=== PATIENT | male | born 1935 | race Caucasian/White ===

== ENCOUNTER 2017-01-20 06:13 | Day surgery (SDC) | payer MEDICARE, BC ==
[~2017-01-20 06:13] MED LIST: Dextrose 5%-0.45% NaCl 1,000 ML IV SCH; Sodium Chloride 0.9% 10 ML Syringe FLUSH PRN
[2017-01-20] MEDS ORDERED: Midazolam 1 MG/ML 2 ML SDV ONE (06:14)
[2017-01-20] MEDS ORDERED: fentaNYL 100 MCG/2 ML SDV ONE (06:14)
[2017-01-20] MEDS ORDERED: fentaNYL 100 MCG/2 ML SDV IV ONE ×3 (07:47→16:53)
[2017-01-20] MEDS ORDERED: Midazolam 1 MG/ML 2 ML SDV IV ONE ×7 (07:48→16:53)
--- NOTE | 2017-01-20 08:39 | OR ---
DATE: 01/20/2017 PROCEDURE: Total colonoscopy. INSTRUMENT USED: PCF-H180 AL Olympus video colonoscope. PREMEDICATIONS: Fentanyl 100 mcg intravenous, Versed 4 mg intravenous, nasal O2 cannula. The procedure was done under pulse oximetry, BP recording, and technology lead. INDICATION: Screening colonoscopic examination is done for detection of any polypoid lesions and removal, endoscopic hemostasis therapy if needed. DESCRIPTION OF PROCEDURE: Initial rectal exam was unremarkable. Rigid anoscopy was normal. The colonoscope was passed with ease up to the ileocecal area. Photographs were taken of the cecum showing angiodysplasia without bleeding from it. NBI views were taken. No bleeding was noted from any of the visualized areas at the commencement of the examination. No stricture. No large isolated ulcerations seen. No evidence of diffuse inflammatory bowel disease in the form of friability, contact bleeding, or ulcerations. No polyp or tumor mass identified. Probing the proximal sides of folds and flexures, using adequate distention, and clearing of the stool material, withdrawal of the scope was made. Cecum to rectum time over 6 minutes. No bleeding was noted from any of the visualized areas at the completion of examination. IMPRESSION: Cecal angiodysplasia. The patient tolerated the procedure well. [facility] /[id number]
[2017-01-20 10:04] VITALS: BP 110/50
== END 2017-01-20 10:10 | disposition home or self-care (01) ==
LOC: DL.ENDO 06:13
PROVIDERS: ATTEND Internal Medicine Gastroenterology
DX: Z12.11 Encounter for screening for malignant neoplasm of colon (principal); K55.20 Angiodysplasia of colon without hemorrhage; I25.10 Atherosclerotic heart disease of native coronary artery without angina pectoris; E78.00 Pure hypercholesterolemia, unspecified; Z88.8 Allergy status to other drugs, medicaments and biological substances; Z91.041 Radiographic dye allergy status; Z95.1 Presence of aortocoronary bypass graft; Z98.890 Other specified postprocedural states; Z87.891 Personal history of nicotine dependence
CPT/HCPCS: G0121; J2250; J3010; J7042

== ENCOUNTER 2019-11-24 16:04 | Emergency (ER) | payer MEDICARE, BC ==
[2019-11-24 18:44] LABS: ANION GAP 14.2 mEq/L (7-13); CHLORIDE,CL 105 mmol/L (98-107); SODIUM,NA 138 mmol/L (136-145)
[2019-11-24] MEDS ORDERED: Sodium Chloride 0.9% 1,000 ML IV ONE (18:44)
[2019-11-24] MEDS ORDERED: Pantoprazole 40 MG Vial IVPUSH ONE (19:23)
--- NOTE | 2019-11-24 19:23 | EDM.PDOC ---
ED HPI GENERAL MEDICAL PROBLEM - General Chief Complaint: General Stated Complaint: WEAK, DIZZY, FELL Time Seen by Provider: 11/24/19 17:50 Source of Information: Reports: Patient History Limitations: Reports: No Limitations - History of Present Illness INITIAL COMMENTS - FREE TEXT/NARRATIVE: ED with daughter reports dizzy today, tripped up one stair, denies injury but concerned due to dizziness. 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 Denies bloody stool, no vomiting, Last chemo last week. No fever or chills. SOB more than usual Denies chest pain Dizziness worse when standing - Related Data Allergies Allergy/AdvReac Type Severity Reaction Status Date / Time ezetimibe Allergy Facial Verified 11/24/19 17:21 Swelling Iodinated Contrast Media Allergy Rash Verified 11/24/19 17:21 [Iodinated Contrast- Oral and IV Dye] Home Meds: Home Meds Aspirin [Halfprin] 1 tab PO DAILY 01/19/17 [History] LORazepam [Ativan] 1 tab PO ASDIRECTED PRN 01/19/17 [History] Naproxen Sodium [Aleve] 1 tab PO DAILY PRN 01/19/17 [History] atorvaSTATin Calcium [Atorvastatin Calcium] 1 tab PO BEDTIME 01/19/17 [History] Multivitamin with Minerals [Multiple Vitamin] 1 tab PO DAILY 10/03/19 [History] Amoxicillin/Potassium Clav [Augmentin 875-125 Tablet] 1 tab PO BID 10/30/19 [ History] Past Medical History HEENT History: Reports: Impaired Vision, Other (See Below) Other HEENT History: WEARS GLASSES Cardiovascular History: Reports: CAD, High Cholesterol, [place] Respiratory History: Reports: None Gastrointestinal History: Reports: None Genitourinary History: Reports: Other (See Below) Other Genitourinary History: ED Musculoskeletal History: Reports: Arthritis Neurological History: Reports: None Psychiatric History: Reports: Anxiety Endocrine/Metabolic History: Reports: None Hematologic History: Reports: Anemia Immunologic History: Reports: None Oncologic (Cancer) History: Reports: None Dermatologic History: Reports: None - Infectious Disease History Infectious Disease History: Reports: None - Past Surgical History Head Surgeries/Procedures: Reports: None HEENT Surgical History: Reports: Cataract Surgery Cardiovascular Surgical History: Reports: Coronary Artery Bypass GI Surgical History: Reports: Colonoscopy, Hernia, Inguinal Musculoskeletal Surgical History: Reports: Other (See Below) Other Musculoskeletal Surgeries/Procedures:: FINGER AMPUTATION Social & Family History - Family History Family Medical History: Noncontributory - Tobacco Use Smoking Status *Q: Never Smoker - Caffeine Use Caffeine Use: Reports: Coffee - Recreational Drug Use Recreational Drug Use: No ED ROS GENERAL - Review of Systems Review Of Systems: Comprehensive ROS is negative, except as noted in HPI. ED EXAM, GENERAL - Physical Exam Exam: See Below Exam Limited By: No Limitations General Appearance: Alert, Mild Distress, Thin, Other (pale) Eye Exam: Bilateral Eye: EOMI Ears: Normal External Exam, Hearing Loss Nose: Normal Inspection Throat/Mouth: Normal Inspection Head: Atraumatic, Normocephalic Neck: Other (chronic wound left) Respiratory/Chest: No Respiratory Distress, Decreased Breath Sounds. No: Crackles, Rales, Wheezing Cardiovascular: Normal Peripheral Pulses, Regular Rate, Rhythm. No: JVD GI/Abdominal: Normal Bowel Sounds, No Distention Rectal (Males) Exam: Normal Rectal Tone, Heme + Stool Back Exam: Normal Inspection, Full Range of Motion Extremities: Normal Range of Motion Neurological: Alert, Oriented, Normal Cognition Psychiatric: Normal Affect Skin Exam: Warm, Dry, Intact, Pallor, Wound/Incision (left neck, arm right forearm) Course - Vital Signs Last Recorded V/S: Last Vital Signs Temp 97.9 F 11/24/19 19:40 Pulse 92 11/24/19 19:40 Resp 20 11/24/19 19:40 BP 105/44 L 11/24/19 19:40 Pulse Ox 100 11/24/19 19:40 - Orders/Labs/Meds Labs: Laboratory Tests 11/24/19 11/24/19 11/24/19 Range/Units 18:14 18:14 18:14 WBC 20.9 H (5.0-10.0) 10^3/uL RBC 1.15 L (4.6-6.2) 10^6/uL Hgb 3.4 L* (14.0-18.0) g/dL Hct 10.4 L* (40.0-54.0) % MCV 90.4 (80-100) fL MCH 29.6 (27.0-34.0) pg MCHC 32.7 L (33.0-35.0) g/dL Plt Count 11 L* (150-450) 10^3/uL Add Manual Diff Yes Neutrophils % (Manual) 40 L (42-75) % Band Neutrophils % 8 % Lymphocytes % (Manual) 23 (20-50) % Monocytes % (Manual) 4 (2-8) % Metamyelocytes % 25 Platelet Estimate Marked dec Sodium 138 (136-145) mmol/L Potassium 4.2 (3.5-5.1) mmol/L Chloride 105 (98-107) mmol/L Carbon Dioxide 23 (21-32) mmol/L Anion Gap 14.2 H (7-13) mEq/L BUN 46 H (7-18) mg/dL Creatinine 1.57 H (0.70-1.30) mg/dL Est Cr Clr Drug Dosing TNP Estimated GFR (MDRD) 43 BUN/Creatinine Ratio 29.3 (No establ ref range) Glucose 127 H (74-99) mg/dL Calcium 7.9 L (8.5-10.1) mg/dL Total Bilirubin 0.3 (0.2-1.0) mg/dL AST 28 (15-37) U/L ALT 31 (16-63) U/L Alkaline Phosphatase 77 (46-116) U/L Total Protein 6.8 (6.4-8.2) g/dL Albumin 2.6 L (3.4-5.0) g/dL Globulin 4.2 Albumin/Globulin Ratio 0.62 Blood Type A POSITIVE Gel Antibody Screen Negative Crossmatch See Detail Meds: Medications Discontinued Medications Generic Name Dose Route Start Last Admin Trade Name Freq PRN Reason Stop Dose Admin Sodium Chloride 1,000 mls @ 200 mls/hr 11/24/19 18:44 Normal Saline IV 11/24/19 23:43 .BOLUS ONE Pantoprazole Sodium 40 mg 11/24/19 19:23 11/24/19 19:28 Protonix Iv IVPUSH 11/24/19 19:24 40 mg ONETIME ONE Administration Departure - Departure Time of Disposition: 21:15 Disposition: DC/Tfer to Acute Hospital 02 Condition: Undetermined Clinical Impression: H/O multiple myeloma, Weakness Anemia Qualifiers: Anemia type: unspecified type Qualified Code(s): D64.9 - Anemia, unspecified Skin ulcer of neck Qualifiers: Non-pressure ulcer stage: unspecified non-pressure ulcer stage Qualified Code(s ): L98.499 - Non-pressure chronic ulcer of skin of other sites with unspecified severity - Discharge Information *PRESCRIPTION DRUG MONITORING PROGRAM REVIEWED*: No *COPY OF PRESCRIPTION DRUG MONITORING REPORT IN PATIENT SHIELA: No Referrals: PCP,None [Primary Care Provider] - Forms: ED Department Discharge Sepsis Event Note (ED) - Evaluation Sepsis Screening Result: No Definite Risk - Focused Exam Vital Signs: Vital Signs Temp Pulse Resp BP Pulse Ox 11/24/19 19:40 97.9 F 92 20 105/44 L 100 11/24/19 19:31 98.2 F 87 16 112/46 L 100 11/24/19 19:08 98.7 F 91 20 94/45 L
[2019-11-24 19:44] VITALS: BP 105/44; PULSE 92
== END 2019-11-24 19:40 ==
LOC: DL.ED 16:04
DX: D64.9 Anemia, unspecified (principal); L98.499 Non-pressure chronic ulcer of skin of other sites with unspecified severity; C90.00 Multiple myeloma not having achieved remission; I25.2 Old myocardial infarction; I25.10 Atherosclerotic heart disease of native coronary artery without angina pectoris; E78.00 Pure hypercholesterolemia, unspecified; F41.9 Anxiety disorder, unspecified; Z95.1 Presence of aortocoronary bypass graft; Z91.041 Radiographic dye allergy status; Z88.8 Allergy status to other drugs, medicaments and biological substances; Z79.82 Long term (current) use of aspirin; Z79.899 Other long term (current) drug therapy
CPT/HCPCS: 36415; 36430; 80053; 82272; 85025; 86850; 86900; 86901; 86920; 86922; 96374; 99285; C9113; P9016; 99284

== ENCOUNTER 2019-12-10 04:55 | Emergency (ER) | payer MEDICARE, BC ==
[2019-12-10] MEDS ORDERED: Bacitracin Oint 1 GM U/D Packet TOP ONE (05:08)
[2019-12-10] MEDS: Lidocaine 2% with EPINEPHrine 1:200,000 20 ML SDV INJECT ONE (05:13)
--- NOTE | 2019-12-10 05:30 | EDM.PDOC ---
ED HPI GENERAL MEDICAL PROBLEM - General Chief Complaint: Head Injury Stated Complaint: LIGHT HEADED, DIZZY Time Seen by Provider: 12/10/19 05:10 Source of Information: Reports: Patient History Limitations: Reports: No Limitations - History of Present Illness INITIAL COMMENTS - FREE TEXT/NARRATIVE: This 84 yo male patient was brought to the ED by family due to a ground level fa ll and a laceration to the right posterior scalp. The patient reports he was getting up to use the bathroom when he got dizzy and fell. The patient reports he did have a transfusion about 1 week ago for anemia and has been getting chemo in [place]. The patient is supposed to be in [place] today for an appointment. Onset: Today Duration: Minutes: Location: Reports: Head Quality: Reports: Ache, Dull Severity: Moderate Improves with: Reports: None Worsens with: Reports: None Context: Reports: Trauma (ground level fall) Associated Symptoms: Reports: Syncope Right Parietal Head Pain Score (Numeric/FACES): 4 - Related Data Allergies Allergy/AdvReac Type Severity Reaction Status Date / Time ezetimibe Allergy Facial Verified 12/10/19 05:45 Swelling Iodinated Contrast Media Allergy Rash Verified 12/10/19 05:45 [Iodinated Contrast- Oral and IV Dye] Home Meds: Home Meds Aspirin [Halfprin] 1 tab PO DAILY 01/19/17 [History] LORazepam [Ativan] 1 tab PO ASDIRECTED PRN 01/19/17 [History] Naproxen Sodium [Aleve] 1 tab PO DAILY PRN 01/19/17 [History] atorvaSTATin Calcium [Atorvastatin Calcium] 1 tab PO BEDTIME 01/19/17 [History] Multivitamin with Minerals [Multiple Vitamin] 1 tab PO DAILY 10/03/19 [History] Pantoprazole [ProTONIX] 40 mg PO DAILY 12/04/19 [History] Past Medical History HEENT History: Reports: Impaired Vision, Other (See Below) Other HEENT History: WEARS GLASSES Cardiovascular History: Reports: CAD, High Cholesterol, [place] Respiratory History: Reports: None Gastrointestinal History: Reports: GERD Genitourinary History: Reports: Other (See Below) Other Genitourinary History: ED Musculoskeletal History: Reports: Arthritis Neurological History: Reports: None Psychiatric History: Reports: Anxiety Endocrine/Metabolic History: Reports: None Hematologic History: Reports: Anemia, Blood Transfusion(s) Other Hematologic History: Leukemia Immunologic History: Reports: None Oncologic (Cancer) History: Reports: Leukemia Dermatologic History: Reports: None - Infectious Disease History Infectious Disease History: Reports: None - Past Surgical History Head Surgeries/Procedures: Reports: None HEENT Surgical History: Reports: Cataract Surgery Cardiovascular Surgical History: Reports: Coronary Artery Bypass GI Surgical History: Reports: Colonoscopy, Hernia, Inguinal Musculoskeletal Surgical History: Reports: Other (See Below) Other Musculoskeletal Surgeries/Procedures:: FINGER AMPUTATION Social & Family History - Family History Family Medical History: Noncontributory - Tobacco Use Smoking Status *Q: Never Smoker Second Hand Smoke Exposure: No - Caffeine Use Caffeine Use: Reports: Coffee - Alcohol Use Date of Last Drink: 12/03/19 - Recreational Drug Use Recreational Drug Use: No ED ROS GENERAL - Review of Systems Review Of Systems: Comprehensive ROS is negative, except as noted in HPI. ED EXAM, HEAD INJURY - Physical Exam Exam: See Below Exam Limited By: No Limitations General Appearance: Alert, WD/WN, No Apparent Distress Head: Scalp Lacerations (right posterior scalp) Nexus Criteria: No: Posterior, Midline Cervical Tenderness, Evidence of Intoxication, Altered Level of Consciousness, Focal Neurological Deficit, Painful Distraction Injuries Eyes: Bilateral Eye: EOMI, Normal Inspection, PERRL Ears: Normal External Exam, Normal Canal, Hearing Grossly Normal, Normal TMs Nose: Normal Inspection, Normal Mucousa, No Blood Throat/Mouth: Normal Inspection, Normal Lips, Normal Teeth, Normal Gums, Normal Oropharynx, Normal Voice, No Airway Compromise Neck: Non-Tender, Full Range of Motion, Normal Alignment, Normal Inspection Respiratory: No Respiratory Distress, Lungs Clear, Normal Breath Sounds, No Accessory Muscle Use, Chest Non-Tender Cardiovascular: Normal Peripheral Pulses, Regular Rate, Rhythm, No Edema, No Gallop, No JVD, No Murmur, No Rub GI/Abdominal Exam: Normal Bowel Sounds, Soft, Non-Tender, No Organomegaly, No Distention, No Abnormal Bruit, No Mass (Male) Exam: Deferred Rectal (Males) Exam: Deferred Back Exam: Full Range of Motion, Normal Inspection, NT Extremities: Normal Inspection, Normal Range of Motion, Non-Tender, No Pedal Edema, Normal Capillary Refill Neurologic: pants cutter II-XII nml As Tested, No Motor/Sensory Deficits, Alert, Normal Mood/Affect, Oriented x 3 Skin: Normal Color, Warm/Dry - Darline Coma Score Best Eye Response ([place]): (4) Open Spontaneously Best Verbal Response (Darline): (5) Oriented Best Motor Response (Darline): (6) Obeys Commands Darline Total: 15 ED LACERATION/WOUND & RONNY PROC - Laceration/Wound Repair Right Posterior Head Lac/wound length in cm: 3.0 Appearance: Subcutaneous Distal NVT: Neuro & Vascular Intact Anesthetic Type: Local Local Anesthesia - Lidocaine (Xylocaine): 2% with EPI Local Anesthetic Volume: 2cc Skin Prep: Chlorhexidine (Hibiciens), Saline Exploration/Debridement/Repair: Wound Explored, In a Bloodless Field, Explored to Base, No Foreign Material Found Closed with: Sutures Suture Size: 3-0 # of Sutures: 5 Suture Type: Prolene, Interrupted, Simple Drain Placement: No Sterile Dressing Applied: Nurse Tetanus Status Addressed: Yes Complications: No Course - Vital Signs Last Recorded V/S: Last Vital Signs Temp 36.3 C 12/10/19 05:05 Pulse 106 H 12/10/19 05:05 Resp 19 12/10/19 05:05 BP 102/44 L 12/10/19 05:05 Pulse Ox 96 12/10/19 05:05 - Orders/Labs/Meds Orders: Active Orders 24 hr Category Date Time Status EKG Documentation Completion [RC] STAT Care 12/10/19 05:04 Active CBC WITH AUTO DIFF [HEME] Stat Lab 12/10/19 05:10 Results MANUAL DIFFERENTIAL QA/NC [HEME] Stat Lab 12/10/19 05:10 Results RED BLOOD CELLS LP [BBK] Stat Lab 12/10/19 05:10 Results TYPE AND SCREEN [BBK] Stat Lab 12/10/19 05:10 Results Labs: Laboratory Tests 12/10/19 12/10/19 12/10/19 Range/Units 05:10 05:10 05:10 WBC 32.5 H* (5.0-10.0) 10^3/uL RBC 1.33 L (4.6-6.2) 10^6/uL Hgb 4.0 L* (14.0-18.0) g/dL Hct 12.3 L* (40.0-54.0) % MCV 92.5 (80-100) fL MCH 30.1 (27.0-34.0) pg MCHC 32.5 L (33.0-35.0) g/dL Plt Count 19 L* (150-450) 10^3/uL Add Manual Diff Yes PT 10.9 (9.0-12.0) SEC INR 1.2 (0.9-1.2) Sodium 135 L (136-145) mmol/L Potassium 3.9 (3.5-5.1) mmol/L Chloride 103 (98-107) mmol/L Carbon Dioxide 19 L (21-32) mmol/L Anion Gap 16.9 H (7-13) mEq/L BUN 57 H (7-18) mg/dL Creatinine 1.68 H (0.70-1.30) mg/dL Est Cr Clr Drug Dosing 28.12 mL/min Estimated GFR (MDRD) 39 BUN/Creatinine Ratio 33.9 (No establ ref range) Glucose 185 H (74-99) mg/dL Calcium 8.0 L (8.5-10.1) mg/dL Total Bilirubin 0.5 (0.2-1.0) mg/dL AST 24 (15-37) U/L ALT 37 (16-63) U/L Alkaline Phosphatase 73 (46-116) U/L Troponin I < 0.017 (0.000-0.056) ng/mL Total Protein 6.4 (6.4-8.2) g/dL Albumin 2.5 L (3.4-5.0) g/dL Globulin 3.9 Albumin/Globulin Ratio 0.64 Blood Type Gel Antibody Screen Crossmatch 12/10/19 Range/Units 05:10 WBC (5.0-10.0) 10^3/uL RBC (4.6-6.2) 10^6/uL Hgb (14.0-18.0) g/dL Hct (40.0-54.0) % MCV (80-100) fL MCH (27.0-34.0) pg MCHC (33.0-35.0) g/dL Plt Count (150-450) 10^3/uL Add Manual Diff PT (9.0-12.0) SEC INR (0.9-1.2) Sodium (136-145) mmol/L Potassium (3.5-5.1) mmol/L Chloride (98-107) mmol/L Carbon Dioxide (21-32) mmol/L Anion Gap (7-13) mEq/L BUN (7-18) mg/dL Creatinine (0.70-1.30) mg/dL Est Cr Clr Drug Dosing mL/min Estimated GFR (MDRD) BUN/Creatinine Ratio (No establ ref range) Glucose (74-99) mg/dL Calcium (8.5-10.1) mg/dL Total Bilirubin (0.2-1.0) mg/dL AST (15-37) U/L ALT (16-63) U/L Alkaline Phosphatase (46-116) U/L Troponin I (0.000-0.056) ng/mL Total Protein (6.4-8.2) g/dL Albumin (3.4-5.0) g/dL Globulin Albumin/Globulin Ratio Blood Type A POSITIVE Gel Antibody Screen Negative Crossmatch See Detail Meds: Medications Discontinued Medications Generic Name Dose Route Start Last Admin Trade Name Freq PRN Reason Stop Dose Admin Bacitracin 1 dose 12/10/19 05:08 12/10/19 05:24 Bacitracin Oint 1 Gm TOP 12/10/19 05:09 1 dose ONETIME ONE Administration Lidocaine/Epinephrine 20 ml 12/10/19 05:08 12/10/19 05:13 Xylocaine-Mpf 2%-Epi 1:200,000 INJECT 12/10/19 05:09 20 ml ONETIME ONE Administration - Re-Assessments/Exams Free Text/Narrative Re-Assessment/Exam: 12/10/19 05:35 A call was received from lab reporting the patient's hemoglobin is 4.0. 2 units of blood were ordered. Departure - Departure Time of Disposition: 06:12 Disposition: DC/Tfer to Acute Hospital 02 Condition: Fair Clinical Impression: Fall from ground level Scalp laceration Qualifiers: Encounter type: initial encounter Qualified Code(s): S01.01XA - Laceration without foreign body of scalp, initial encounter Anemia Qualifiers: Anemia type: unspecified type Qualified Code(s): D64.9 - Anemia, unspecified - Discharge Information Forms: Interfacility Transfer [facility] Care Plan Goals: Discussed the patient's history, examination, lab, CT results and treatments with Dr. Willard. Dr. Willard accepted the patient for continued evaluation and treatments as an inpatient at [facility] in [place]. The patient will be transferred by [facility]. Sepsis Event Note (ED) - Evaluation Sepsis Screening Result: No Definite Risk - Focused Exam Vital Signs: Vital Signs Temp Pulse Resp BP Pulse Ox 12/10/19 05:05 36.3 C 106 H 19 102/44 L 96 - My Orders Last 24 Hours: My Active Orders 12/10/19 05:04 EKG Documentation Completion [RC] STAT 12/10/19 05:10 CBC WITH AUTO DIFF [HEME] Stat MANUAL DIFFERENTIAL QA/NC [HEME] Stat RED BLOOD CELLS LP [BBK] Stat TYPE AND SCREEN [BBK] Stat - Assessment/Plan Last 24 Hours: My Active Orders 12/10/19 05:04 EKG Documentation Completion [RC] STAT 12/10/19 05:10 CBC WITH AUTO DIFF [HEME] Stat MANUAL DIFFERENTIAL QA/NC [HEME] Stat RED BLOOD CELLS LP [BBK] Stat TYPE AND SCREEN [BBK] Stat
[2019-12-10 05:40] LABS: ANION GAP 16.9 mEq/L (7-13); CHLORIDE,CL 103 mmol/L (98-107); SODIUM,NA 135 mmol/L (136-145)
--- NOTE | 2019-12-10 05:48 | CT ---
PROCEDURE INFORMATION: Exam: CT Head Without Contrast Exam date and time: 12/10/2019 5:31 AM Age: 84 years old Clinical indication: Other: Fall; Additional info: Glf hit head TECHNIQUE: Imaging protocol: Computed tomography of the head without contrast. Radiation optimization: All CT scans at this facility use at least one of these dose optimization techniques: automated exposure control; mA and/or kV adjustment per patient size (includes targeted exams where dose is matched to clinical indication); or iterative reconstruction. COMPARISON: No relevant prior studies available. FINDINGS: There is no evidence for intracranial hemorrhage, space occupying lesions or mass effect. The ventricles are normal in contour. There is moderate atrophy. There are lacunae in the periventricular white matter bilaterally and left cerebellum. Vanegas-white differentiation is preserved. IMPRESSION: No acute intracranial abnormality.
--- NOTE | 2019-12-10 05:56 | CT ---
PROCEDURE INFORMATION: Exam: CT Cervical Spine Without Contrast Exam date and time: 12/10/2019 5:31 AM Age: 84 years old Clinical indication: Other: Fall; Additional info: Glf hit head TECHNIQUE: Imaging protocol: Computed tomography images of the cervical spine without contrast. Radiation optimization: All CT scans at this facility use at least one of these dose optimization techniques: automated exposure control; mA and/or kV adjustment per patient size (includes targeted exams where dose is matched to clinical indication); or iterative reconstruction. COMPARISON: No relevant prior studies available. FINDINGS: There is multilevel icth-oc-yyprcose degenerative disc disease with straightening. There are degenerative changes of several facet joints and the atlantoaxial joint . There is slight anterolisthesis of C4 on C5. There is otherwise normal alignment of the cervical spine. There is no evidence for fracture. IMPRESSION: No acute findings.
[2019-12-10 06:27] VITALS: PULSE 81
[2019-12-10 06:35] VITALS: BP 107/42
== END 2019-12-10 06:43 ==
LOC: DL.ED 04:55
DX: S01.01XA Laceration without foreign body of scalp, initial encounter (principal); D64.9 Anemia, unspecified; E78.00 Pure hypercholesterolemia, unspecified; I25.10 Atherosclerotic heart disease of native coronary artery without angina pectoris; I25.2 Old myocardial infarction; K21.9 Gastro-esophageal reflux disease without esophagitis; M19.90 Unspecified osteoarthritis, unspecified site; F41.9 Anxiety disorder, unspecified; Z79.82 Long term (current) use of aspirin; Z79.899 Other long term (current) drug therapy; Z91.041 Radiographic dye allergy status; Z88.8 Allergy status to other drugs, medicaments and biological substances; W18.30XA Fall on same level, unspecified, initial encounter
CPT/HCPCS: 12002; 36415; 36430; 70450; 72125; 80053; 84484; 85025; 85610; 86850; 86900; 86901; 86920; 86922; 93005; 99285; P9040; 99284

== ENCOUNTER 2019-12-31 10:12 | Emergency (ER) | payer MEDICARE, BC ==
--- NOTE | 2019-12-31 10:47 | EDM.PDOC ---
ED HPI GENERAL MEDICAL PROBLEM - General Stated Complaint: SOB Time Seen by Provider: 12/31/19 10:35 Source of Information: Reports: Patient History Limitations: Reports: No Limitations - History of Present Illness INITIAL COMMENTS - FREE TEXT/NARRATIVE: This 84 yo male patient was sent to the ED from the [facility] due to increased shortness of breath. The patient reports he has noticed the increased shortness of breath today. The patient was in the [facility] this morning for a blood draw and was told by a nurse that his oxygen level was low and sent him to the ED. The patient reports he had chest pain on Tuesday and has not had a bowel movement in 4 days. The patient has leukemia with his last blood transfusion (2 units with platelets) being on Tuesday (12/28/19). Onset: Today Duration: Constant Location: Reports: Chest Quality: Reports: Other Severity: Moderate Improves with: Reports: Rest Worsens with: Reports: Movement Associated Symptoms: Reports: Shortness of Breath - Related Data Allergies Allergy/AdvReac Type Severity Reaction Status Date / Time ezetimibe Allergy Facial Verified 12/20/19 14:09 Swelling Iodinated Contrast Media Allergy Rash Verified 12/20/19 14:09 [Iodinated Contrast- Oral and IV Dye] Home Meds: Home Meds LORazepam [Ativan] 1 tab PO DAILY PRN 01/19/17 [History] Naproxen Sodium [Aleve] 1 tab PO DAILY PRN 01/19/17 [History] atorvaSTATin Calcium [Atorvastatin Calcium] 80 mg PO BEDTIME 01/19/17 [History] Multivitamin with Minerals [Multiple Vitamin] 1 tab PO DAILY 10/03/19 [History] Pantoprazole [ProTONIX] 40 mg PO DAILY 12/04/19 [History] Past Medical History HEENT History: Reports: Impaired Vision, Other (See Below) Other HEENT History: WEARS GLASSES Cardiovascular History: Reports: CAD, High Cholesterol, GA Respiratory History: Reports: None Gastrointestinal History: Reports: GERD Genitourinary History: Reports: Other (See Below) Other Genitourinary History: ED Musculoskeletal History: Reports: Arthritis Neurological History: Reports: None Psychiatric History: Reports: Anxiety Endocrine/Metabolic History: Reports: None Hematologic History: Reports: Anemia, Blood Transfusion(s) Other Hematologic History: Leukemia Immunologic History: Reports: None Oncologic (Cancer) History: Reports: Leukemia Dermatologic History: Reports: None - Infectious Disease History Infectious Disease History: Reports: Chicken Pox, Measles, Mumps - Past Surgical History Head Surgeries/Procedures: Reports: None HEENT Surgical History: Reports: Cataract Surgery Cardiovascular Surgical History: Reports: Coronary Artery Bypass GI Surgical History: Reports: Colonoscopy, Hernia, Inguinal Musculoskeletal Surgical History: Reports: Other (See Below) Other Musculoskeletal Surgeries/Procedures:: FINGER AMPUTATION Social & Family History - Family History Family Medical History: Noncontributory - Caffeine Use Caffeine Use: Reports: Coffee ED ROS GENERAL - Review of Systems Review Of Systems: Comprehensive ROS is negative, except as noted in HPI. ED EXAM, GENERAL - Physical Exam Exam: See Below Exam Limited By: No Limitations General Appearance: Alert, WD/WN, Moderate Distress, Thin Eye Exam: Bilateral Eye: EOMI, Normal Inspection, PERRL Ears: Normal External Exam, Normal Canal, Hearing Grossly Normal, Normal TMs Nose: Normal Inspection, Normal Mucosa, No Blood Throat/Mouth: Normal Inspection, Normal Lips, Normal Teeth, Normal Gums, Normal Oropharynx, Normal Voice, No Airway Compromise Head: Atraumatic, Normocephalic Neck: Normal Inspection, Supple, Non-Tender, Full Range of Motion Respiratory/Chest: No Respiratory Distress, Lungs Clear, Normal Breath Sounds, No Accessory Muscle Use, Chest Non-Tender Cardiovascular: Normal Peripheral Pulses, Regular Rate, Rhythm, No Edema, No Gallop, No JVD, No Murmur, No Rub GI/Abdominal: Normal Bowel Sounds, Soft, Non-Tender, No Organomegaly, No Distention, No Abnormal Bruit, No Mass (Male) Exam: Deferred Rectal (Males) Exam: Deferred Back Exam: Normal Inspection, Full Range of Motion, NT Extremities: Normal Inspection, Normal Range of Motion, Non-Tender, Normal Capillary Refill, No Pedal Edema Neurological: Alert, Oriented, CN II-XII Intact, Normal Cognition, Normal Gait, Normal Reflexes, No Motor/Sensory Deficits Psychiatric: Normal Affect, Normal Mood Skin Exam: Warm, Dry, Intact, Normal Color, No Rash Lymphatic: No Adenopathy Course - Vital Signs Last Recorded V/S: Last Vital Signs Temp 36.3 C 12/31/19 10:46 Pulse 90 12/31/19 10:46 Resp 24 H 12/31/19 10:46 BP 107/34 L 12/31/19 10:46 Pulse Ox 80 L 12/31/19 10:46 - Orders/Labs/Meds Orders: Active Orders 24 hr Category Date Time Status EKG Documentation Completion [RC] STAT Care 12/31/19 10:39 Active BLOOD GAS ARTERIAL [BG] Stat Lab 12/31/19 11:59 Ordered CORONAVIRUS COVID-19 PCR [facility] Urgent Lab 12/31/19 11:59 Ordered CULTURE BLOOD [BC] Stat Lab 12/31/19 11:00 Received REFLEX LACTIC ACID YES OR NO [CHEM] Routine Lab 12/31/19 11:39 Received Labs: Laboratory Tests 12/31/19 12/31/19 12/31/19 Range/Units 11:00 11:00 11:00 WBC 263.5 H* (5.0-10.0) 10^3/uL RBC 1.36 L (4.6-6.2) 10^6/uL Hgb 4.3 L* (14.0-18.0) g/dL Hct 12.7 L* (40.0-54.0) % MCV 93.4 (80-100) fL MCH 31.6 (27.0-34.0) pg MCHC 33.9 (33.0-35.0) g/dL Plt Count 57 L (150-450) 10^3/uL Add Manual Diff Yes Neutrophils % (Manual) 11 L (42-75) % Band Neutrophils % 9 % Lymphocytes % (Manual) 16 L (20-50) % Immat Monocytes % (Man) 34 Monocytes % (Manual) 4 (2-8) % Metamyelocytes % 2 Myelocytes % 24 Atypical Lymphocytes Few Platelet Estimate Marked dec Clumped Platelets Not seen RBC Morph Comment See note Sodium 137 (136-145) mmol/L Potassium 4.6 (3.5-5.1) mmol/L Chloride 101 (98-107) mmol/L Carbon Dioxide 14 L (21-32) mmol/L Anion Gap 26.6 H (7-13) mEq/L BUN 50 H (7-18) mg/dL Creatinine 2.65 H (0.70-1.30) mg/dL Est Cr Clr Drug Dosing TNP Estimated GFR (MDRD) 23 BUN/Creatinine Ratio 18.9 (No establ ref range) Glucose 219 H (74-99) mg/dL Lactic Acid 14.5 H* (0.4-2.0) mmol/L Calcium 7.9 L (8.5-10.1) mg/dL Total Bilirubin 0.4 (0.2-1.0) mg/dL AST 65 H (15-37) U/L ALT 28 (16-63) U/L Alkaline Phosphatase 112 (46-116) U/L Troponin I 0.076 H* (0.000-0.056) ng/mL Total Protein 6.1 L (6.4-8.2) g/dL Albumin 2.4 L (3.4-5.0) g/dL Globulin 3.7 Albumin/Globulin Ratio 0.65 Departure - Departure Time of Disposition: 12:02 Disposition: DC/Tfer to [facility] 02 Condition: Critical Clinical Impression: Elevated troponin Anemia Qualifiers: Anemia type: unspecified type Qualified Code(s): D64.9 - Anemia, unspecified Leukocytosis Qualifiers: Leukocytosis type: unspecified Qualified Code(s): D72.829 - Elevated white blood cell count, unspecified Renal failure (ARF), acute on chronic Qualifiers: Acute renal failure type: unspecified Chronic kidney disease stage: unspecified stage Qualified Code(s): N17.9 - Acute kidney failure, unspecified; N18.9 - Chronic kidney disease, unspecified - Discharge Information *PRESCRIPTION DRUG MONITORING PROGRAM REVIEWED*: Not Applicable *COPY OF PRESCRIPTION DRUG MONITORING REPORT IN PATIENT SHIELA: Not Applicable Forms: Interfacility Transfer EMTALA Care Plan Goals: Discussed the patient's history, examination, lab, EKG and x-ray results with Dr. Tang. Dr. Tang accepted the patient for continued evaluation and management. The patient will be transported by [facility]. Sepsis Event Note (ED) - Focused Exam Vital Signs: Vital Signs Temp Pulse Resp BP Pulse Ox Pulse Ox 12/31/19 10:46 36.3 C 90 24 H 107/34 L 80 L 12/31/19 10:43 100 - My Orders Last 24 Hours: My Active Orders 12/31/19 10:39 EKG Documentation Completion [RC] STAT 12/31/19 11:00 CULTURE BLOOD [BC] Stat 12/31/19 11:39 REFLEX LACTIC ACID YES OR NO [CHEM] Routine 12/31/19 11:59 BLOOD GAS ARTERIAL [BG] Stat CORONAVIRUS COVID-19 PCR [facility] Urgent - Assessment/Plan Last 24 Hours: My Active Orders 12/31/19 10:39 EKG Documentation Completion [RC] STAT 12/31/19 11:00 CULTURE BLOOD [BC] Stat 12/31/19 11:39 REFLEX LACTIC ACID YES OR NO [CHEM] Routine 12/31/19 11:59 BLOOD GAS ARTERIAL [BG] Stat CORONAVIRUS COVID-19 PCR PHL Urgent
[2019-12-31 10:52] VITALS: BP 107/34; PULSE 90
--- NOTE | 2019-12-31 11:12 | CR ---
PROCEDURE INFORMATION: Exam: XR Chest, 1 View Exam date and time: 12/31/2019 10:52 AM Age: 84 years old Clinical indication: Other: Short of breath TECHNIQUE: Imaging protocol: XR of the chest Views: 1 view. COMPARISON: No relevant prior exams. FINDINGS: Lungs: Unremarkable. No consolidation. Pleural space: Unremarkable. No pleural effusion. No pneumothorax. Heart/Mediastinum: Unremarkable. No cardiomegaly. Bones/joints: Sternal wires are present. IMPRESSION: No acute cardiopulmonary disease.
[2019-12-31 11:31] LABS: ANION GAP 26.6 mEq/L (7-13); CHLORIDE,CL 101 mmol/L (98-107); SODIUM,NA 137 mmol/L (136-145)
[2019-12-31 12:18] LABS: BASE EXCESS ARTERIAL -8 mmol/L ((-2)-(+3)); BICARBONATE,ARTERIAL 15.8 mmol/L (22-26); O2 DELIVERY DEVICE NASAL CANNULA; O2 SATURATION ARTERIAL 98 % (95-100); PCO2 ARTERIAL 23 mmHg (35-45); PO2 ARTERIAL 85 mmHg (70-100)
[2019-12-31 12:20] LABS: ALLEN TEST LB; O2 FLOW RATE 4
== END 2019-12-31 13:40 ==
LOC: DL.ED 10:12
DX: D72.829 Elevated white blood cell count, unspecified (principal); D64.9 Anemia, unspecified; N18.9 Chronic kidney disease, unspecified; N17.9 Acute kidney failure, unspecified; R79.89 Other specified abnormal findings of blood chemistry; E78.00 Pure hypercholesterolemia, unspecified; I25.10 Atherosclerotic heart disease of native coronary artery without angina pectoris; I25.2 Old myocardial infarction; K21.9 Gastro-esophageal reflux disease without esophagitis; F41.9 Anxiety disorder, unspecified; Z20.828 Contact with and (suspected) exposure to other viral communicable diseases; Z91.041 Radiographic dye allergy status; Z79.899 Other long term (current) drug therapy; Z88.8 Allergy status to other drugs, medicaments and biological substances
CPT/HCPCS: 36415; 36600; 71045; 80053; 82803; 83605; 84484; 85025; 87040; 93005; 99285; U0002